=== PATIENT | male | born 1955 | race Caucasian/White ===

== ENCOUNTER 2020-12-27 13:04 | Emergency (ER) | payer MEDICARE, BC ==
[~2020-12-27] VITALS: Ht 177.8 cm; Wt 99.2 kg
[2020-12-27] MEDS ORDERED: LABE20TAB (13:21)
[2020-12-27] MEDS ORDERED: TRES1INJ2 (13:21)
[2020-12-27] MEDS ORDERED: ROSU40TA4 (13:21)
[2020-12-27] MEDS ORDERED: AMLO10CA22 (13:21)
[2020-12-27] MEDS ORDERED: [UNRECOGNIZED DRUG - CODE] (13:21)
[2020-12-27] MEDS ORDERED: TAMS1CAP17 (13:21)
[2020-12-27] MEDS ORDERED: MYRB25TA (13:21)
--- NOTE | 2020-12-27 15:47 | REP ---
INDICATION: Pain and swelling to bottom of foot, r/o foreign body. COMPARISON: None. FINDINGS: The joint spaces are symmetric and relatively well maintained. There is no evidence of acute fracture or destructive osseous lesion. Seen in the ball of the foot plantar surface there is a 1 mm sized linear vague and subtle density. IMPRESSION: Vague and subtle density seen in the soft tissues as described above possibly representing the foreign body of clinical interest. <Electronically signed by Fabien Babin > 12/27/20 [id number]
[2020-12-27] MEDS ORDERED: CEPH500C PO (16:19)
[2020-12-27 16:30] VITALS: BP 125/82
--- NOTE | 2020-12-28 14:08 | ED PDOC ---
Post-Departure Follow-Up dr burns and jeremy perkins faxed fomral report of right foot film for fu Connor [address] MD Dec 28, 2020 14:08
== END 2020-12-27 17:13 | disposition home or self-care (01) ==
LOC: M ED 13:04
DX: S90.851A Superficial foreign body, right foot, initial encounter (principal); X58.XXXA Exposure to other specified factors, initial encounter; Y92.89 Other specified places as the place of occurrence of the external cause; I10 Essential (primary) hypertension; E11.9 Type 2 diabetes mellitus without complications; E78.5 Hyperlipidemia, unspecified; N40.0 Benign prostatic hyperplasia without lower urinary tract symptoms; Z79.899 Other long term (current) drug therapy; Z79.4 Long term (current) use of insulin; Z88.0 Allergy status to penicillin; Z88.8 Allergy status to other drugs, medicaments and biological substances

== ENCOUNTER → 2023-03-22 | Outpatient (REF) | payer MEDICARE, BC ==
[~2023-03-22] MED LIST: AMLO10CA30; CEPH500C PO; LABE20TAB; MYRB25TA; ROSU40TA4; TAMS1CAP17; TRES1INJ2; [UNRECOGNIZED DRUG - CODE]
== END ==
LOC: M WUC 17:10
PROVIDERS: ATTEND Physician Assistant
DX: N40.1 Benign prostatic hyperplasia with lower urinary tract symptoms (principal); Z12.5 Encounter for screening for malignant neoplasm of prostate
CPT/HCPCS: 36415; G0103

== ENCOUNTER → 2023-07-17 | Outpatient (CLI) | payer MEDICARE, BC ==
[~2023-07-17] MED LIST changes: -AMLO10CA30; +AMLO10CA30 PO; +ASPI81TA26 PO; +BREO1INH; +CETI5SOL3 PO; +EQL50TAB2 PO; +KP F1200 PO; -LABE20TAB; +LABE20TAB PO; -MYRB25TA; +MYRB25TA PO; +PROA1AER2 INH; -ROSU40TA4; +ROSU40TA4 PO; -TAMS1CAP17; +TAMS1CAP17 PO; -TRES1INJ2; +TRES1INJ2 SQ; +VITA100093 PO; +VITA500C24 PO; -[UNRECOGNIZED DRUG - CODE]; +[UNRECOGNIZED DRUG - CODE] SQ
== END ==
LOC: M RAD 11:53
PROVIDERS: ATTEND Internal Medicine
DX: N18.30 Chronic kidney disease, stage 3 unspecified (principal); R93.421 Abnormal radiologic findings on diagnostic imaging of right kidney; N28.1 Cyst of kidney, acquired

== ENCOUNTER 2024-01-08 07:41 | Day surgery (SDC) | payer MEDICARE, BC ==
[~2024-01-08] VITALS: Ht 177.8 cm; Wt 96.6 kg
[~2024-01-08 07:41] MED LIST changes: -BREO1INH; +BREO1INH INH; -ROSU40TA4 PO; +ROSU40TA63 PO
[2024-01-08] MEDS ORDERED: LIDOCAINE 2% 100MG/5ML SDV (FOR ANES.) As Ordered ONE (08:08)
[2024-01-08] MEDS ORDERED: propofoL 200 MG/20 ML VIAL As Ordered ONE (08:08)
[2024-01-08] MEDS: NS 1,000 ML IV ONE (08:29)
[2024-01-08 09:31] VITALS: TEMP 97.8
[2024-01-08 09:48] VITALS: BP 168/82; O2SAT 97
== END 2024-01-08 09:54 | disposition home or self-care (01) ==
LOC: M OPP 07:41
PROVIDERS: ATTEND Internal Medicine Gastroenterology
DX: Z12.11 Encounter for screening for malignant neoplasm of colon (principal); Z86.010 Personal history of colon polyps; K64.0 First degree hemorrhoids; K57.30 Diverticulosis of large intestine without perforation or abscess without bleeding; E11.9 Type 2 diabetes mellitus without complications; G47.30 Sleep apnea, unspecified; Z99.89 Dependence on other enabling machines and devices; Z79.02 Long term (current) use of antithrombotics/antiplatelets; Z79.51 Long term (current) use of inhaled steroids; Z79.82 Long term (current) use of aspirin; Z79.899 Other long term (current) drug therapy; Z88.1 Allergy status to other antibiotic agents; Z88.8 Allergy status to other drugs, medicaments and biological substances

== ENCOUNTER → 2024-03-19 | Outpatient (CLI) | payer MEDICARE, BC ==
[~2024-03-19] MED LIST changes: -ROSU40TA63 PO; +ROSU40TA81 PO
== END ==
LOC: M WUC 13:35
PROVIDERS: ATTEND Physician Assistant
DX: Z12.5 Encounter for screening for malignant neoplasm of prostate (principal)
CPT/HCPCS: 36415; G0103

== ENCOUNTER 2024-07-10 09:33 | Emergency (ER) | payer MEDICARE, BC ==
[~2024-07-10] VITALS: Ht 177.8 cm; Wt 91.2 kg
[2024-07-10] MEDS ORDERED: SEMA0.257 SQ (10:04)
[2024-07-10] MEDS: ACETAMINOPHEN 500 MG TAB PO ONE (11:56)
[2024-07-10 12:53] LABS: BASO # 0.1 10^3/uL (0.0-0.2); BASO % 0.7 % (0.0-1.0); EOS % 0.4 % (0.0-3.0); HEMATOCRIT 43.1 % (42.0-52.0); LYMPH # 0.4 10^3/uL (1.5-5.0); LYMPH % 5.9 % (24.0-44.0); MEAN CORPUSCULAR HEMOGLOBIN 29.4 pg (27.0-33.0); MEAN CORPUSCULAR HGB CONC 34.8 g/dl (32.0-36.5); MEAN CORPUSCULAR VOLUME 84.5 fl (80.0-96.0); MONO # 0.7 10^3/uL (0.0-0.8); MONO % 9.7 % (2.0-8.0); NEUTROPHILS # 6.2 10^3/uL (1.5-8.5); NEUTROPHILS % 82.9 % (36.0-66.0); PLATELET COUNT, AUTOMATED 118 10^3/uL (150-450); WHITE BLOOD COUNT 7.5 10^3/uL (4.0-10.0)
[2024-07-10 13:13] LABS: BILIRUBIN,DIRECT 0.4 MG/DL (<0.4); BILIRUBIN,TOTAL 1.1 MG/DL (0.3-1.2); TOTAL PROTEIN 6.6 G/DL (5.7-8.2)
[2024-07-10] MEDS: NS (Normal Saline) 0.9% 1,000 ML IV ONE (13:22)
[2024-07-10 13:34] LABS: CALCIUM LEVEL 9.4 MG/DL (8.3-10.6); CREATININE FOR GFR 2.21 MG/DL (0.70-1.30); GLOMERULAR FILTRATION RATE 31.6 (>49)
[2024-07-10] MEDS ORDERED: HOME MED LIST COMPLETE! XX SCH (15:15)
[2024-07-10] MEDS ORDERED: TAMI30CA PO (16:13)
[2024-07-10] MEDS ORDERED: METR-265 PO (16:25)
[2024-07-10] MEDS ORDERED: CIPR-249 PO (16:25)
[2024-07-10 16:30] VITALS: BP 169/92; TEMP 99.9; O2SAT 95
== END 2024-07-10 16:31 | disposition home or self-care (01) ==
LOC: M ED 09:33
DX: N39.0 Urinary tract infection, site not specified (principal); N17.9 Acute kidney failure, unspecified; J09.X2 Influenza due to identified novel influenza A virus with other respiratory manifestations; K57.32 Diverticulitis of large intestine without perforation or abscess without bleeding; E11.9 Type 2 diabetes mellitus without complications; N18.30 Chronic kidney disease, stage 3 unspecified; I10 Essential (primary) hypertension; N40.1 Benign prostatic hyperplasia with lower urinary tract symptoms; K59.00 Constipation, unspecified; Z79.4 Long term (current) use of insulin; Z79.82 Long term (current) use of aspirin; Z79.899 Other long term (current) drug therapy; Z88.0 Allergy status to penicillin; Z88.8 Allergy status to other drugs, medicaments and biological substances

== ENCOUNTER → 2025-03-26 | Outpatient (CLI) | payer MEDICARE, BC ==
[~2025-03-26] MED LIST changes: +CIPR-249 PO; -EQL50TAB2 PO; +METR-265 PO; +SEMA0.257 SQ; +TAMI30CA PO; +VITA1TAB82 PO
== END ==
LOC: M WUC 13:18
PROVIDERS: ATTEND Specialist
DX: N40.1 Benign prostatic hyperplasia with lower urinary tract symptoms (principal)